=== PATIENT | male | born 1990 | race Two or more races ===

== ENCOUNTER 2020-04-28 19:38 | Emergency (ER) | payer MEDICAID ==
[~2020-04-28] VITALS: Ht 170.2 cm; Wt 79.8 kg
[2020-04-29] MEDS ORDERED: ONDANSETRON ODT 4 MG TAB PO ONE (02:15)
[2020-04-29 02:31] VITALS: BP 111/61
== END 2020-04-29 02:30 | disposition home or self-care (01) ==
LOC: ER 19:38
DX: S01.512A Laceration without foreign body of oral cavity, initial encounter (principal); Z88.6 Allergy status to analgesic agent; X58.XXXA Exposure to other specified factors, initial encounter; Y93.89 Activity, other specified; Y92.89 Other specified places as the place of occurrence of the external cause; Y99.8 Other external cause status
CPT/HCPCS: 41251; 99284; Q0162

== ENCOUNTER 2024-07-30 06:06 | Emergency (ER) | payer MEDICAID ==
[~2024-07-30] VITALS: Ht 170.2 cm; Wt 71.2 kg
[2024-07-30 06:16] VITALS: BP 135/98; PULSE 95; RESP 22; O2SAT 100
--- NOTE | 2024-07-30 06:59 | ED.PDOC ---
History of Present Illness HPI Comments 34-year-old male presents with a chief complaint of SOB and anxiety s/p meth use x 1 hour ago. Patient states that he used IV meth for the second time x 1 hour ago. Patient reports that now he feels anxious and SOB. Patient is sating at 99% on room air and able to speak in full, complete sentences. Patient denies any chest pain at this time. Patient endorses drinking a tall can, vape pen, and IV meth all together x 1 hour ago. Patient is lethargic in triage. No other symptoms or modifying factors present at this time. Chief Complaint: Anxiety Time Seen by MD: 06:37 Primary Care Provider: FUENTES Mckee Notes: Medications, Allergies Allergies: Coded Allergies: Acetaminophen (Verified Allergy, Unknown, 04/28/20) Information Source: Patient Mode of Arrival: Ambulatory Severity: Moderate Timing: Hours Duration: Since onset Prehospital treatment: None Past Medical History PAST MEDICAL HISTORY: Denies Surgical History: Denies all surgeries Family History Family History: Reviewed,noncontributory to illness, No family hx of Cancer, No family hx of DM, No family hx of Heart emily, No family hx of HTN, No family hx ofKidney emily, No family hx of Liver emily, No family hx of Lung emily, No family hx of Stroke Social History Smoker: Non-Smoker Alcohol: Heavy Drugs: Methamphetamine Lives In: Home Constitutional: denies: chills, diaphoresis, fatigue, fever, malaise, sweats, weakness, others EENTM: denies: blurred vision, double vision, ear bleeding, ear discharge, ear drainage, ear pain, ear ringing, eye pain, eye redness, hearing loss, mouth pain, mouth swelling, nasal discharge, nose bleeding, nose congestion, nose pain, photophobia, tearing, throat pain, throat swelling, voice changes, others Respiratory: reports: shortness of breath; denies: cough, hemoptysis, orthopnea, SOB at rest, SOB with excertion, stridor, wheezing, others Cardiovascular: denies: chest pain, dizzy spells, diaphoresis, Dyspnea on exertion, edema, irregular heart beat, left arm pain, lightheadedness, palpitations, PND, syncope, others Gastrointestinal: denies: abdomen distended, abdominal pain, blood streaked bowels, constipated, diarrhea, dysphagia, difficulty swallowing, hematemesis, melena, nausea, poor appetite, poor fluid intake, rectal bleeding, rectal pain, vomiting, others Genitourinary: denies: burning, dysuria, flank pain, frequency, hematuria, incontinence, penile discharge, penile sore, pain, testicle pain, testicle swelling, urgency, others Neurological: denies: dizziness, fainting, headache, left sided numbness, left sided weakness, numbness, paresthesia, pre-existing deficit, right sided numbness, right sided weakness, seizure, speech problems, tingling, tremors, weakness, others Musculoskeletal: denies: back pain, gout, joint pain, joint swelling, muscle pain, muscle stiffness, neck pain, others Integumetry: denies: bruises, change in color, change in hair/nails, dryness, laceration, lesions, lumps, rash, wounds, others Allergic/Immunocompromised: denies: Difficulty Healing, Frequent Infections, Hives, Itching, others Hematologic/Lymphatic: denies: anemia, blood clots, easy bleeding, easy bruising, swollen glands, others Endocrine: denies: excessive hunger, excessive sweating, excessive thirst, excessive urination, flushing, intolerance to cold, intolerance to heat, unexplained weight gain, unexplained weight loss, others Psychiatric: reports: anxiety; denies: bipolar disorder, depression, hopeless, panic disorder, schizophrenia, sleepless, suicidal, others All Other Systems: Reviewed and Negative Physical Exam General Appearance: No Apparent Distress, Normal, Other (SLEEPY, BUT AWAKENS TO VOICE AND ANSWERS QUESTIONS) HEENT: Normal ENT Inspection, Pharynx Normal, TMs Normal Neck: Full Range of Motion, Non-Tender, Normal, Normal Inspection Respiratory: Chest Non-Tender, Lungs Clear, No Accessory Muscle Use, No Respiratory Distress, Normal Breath Sounds, Other (SHALLOW BREATHING; POOR EFFORT) Cardiovascular: No Edema, No JVD, No Murmur, No Gallop, Normal Peripheral Pulses, Regular Rate/Rhythm Breast Exam: Deferred Gastrointestinal: No Organomegaly, Non Tender, No Pulsatile Mass, Normal Bowel Sounds, Soft Genitalia: Deferred Pelvic: Deferred Rectal: Deferred Extremities: No calf tenderness, Normal capillary refill, Normal inspection, Normal range of motion, Non-tender, No pedal edema Musculoskeletal : Apperance: Normal Neurologic: Alert, 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 Was a procedure done?: No EKG EKG : Comments Normal sinus rhythm rate of [address] changes Differential Dx Considerations may include: METH USE, HEROIN USE, PNEUMONIA, PNEUMOTHORAX, COUGH, DRUG INDUCED ANXIETY X-Ray, Labs, Meds, VS Vital Signs Date Time Temp Pulse Resp B/P (MAP) Pulse Ox O2 Delivery O2 Flow Rate FiO2 07/30/24 06:16 98.2 95 22 135/98 (110) 100 34-year-old male presents here with anxiety by triage nurse. On my evaluation he was calm and very sleepy. He does report some shortness of breath. He had shallow breathing on my evaluation as he was very sleepy. EKG has been done with no significant abnormality. Chest x-ray has been ordered. However prior to obtaining a chest x-ray patient has eloped. Time of 1ST Reevaluation: 07:07 Reevaluation 1ST: Unchanged Patient Education/Counseling: Diagnosis, Treatment, Prognosis Family Education/Counseling: No Family Present Departure 1 Departure Time of Disposition: 06:59 Impression: Primary Impression: Methamphetamine abuse Additional Impression: SOB (shortness of breath) Disposition: 01 HOME / SELF CARE / HOMELESS Condition: Stable Discharged With: Self Critical Care Note Critical Care Time?: No Stability Stability form required: No Heart Score Heart Score: Heart Score Response (Comments) Value History Slightly Suspicious 0 EKG Normal 0 Age <45 0 Risk Factors 1 or 2 risk factors 1 Troponin N/A 0 Total 1 I personally scribed for MALLORY SCHMIDT MD ([email or web address]) on 07/30/24 at 06:59. Electronically submitted by Ibrahima Riley ([email or web address]). MALLORY SCHMIDT MD Jul 30, 2024 06:59
--- NOTE | 2024-08-05 10:18 | ECG ---
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
--- NOTE | 2024-08-05 10:18 | ECG ---
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
== END 2024-07-30 08:29 | disposition home or self-care (01) ==
LOC: ER 06:06
DX: F15.10 Other stimulant abuse, uncomplicated (principal); R06.02 Shortness of breath; F10.90 Alcohol use, unspecified, uncomplicated; Z88.8 Allergy status to other drugs, medicaments and biological substances; Y90.0 Blood alcohol level of less than 20 mg/100 ml
CPT/HCPCS: 93005